=== PATIENT | female | born 1975 | race Caucasian/White ===

== ENCOUNTER 2018-04-20 10:53 | Outpatient (CLI) | payer OTHER ==
[2013-11-24 00:25] VITALS: BP 94/36
[2018-04-20 11:05] LABS: MEAN CORPUSCULAR HEMOGLOBIN 31.1 pg (28.0-34.0); MEAN CORPUSCULAR VOLUME 94.7 fl (80.0-100.0)
== END 2018-04-20 12:17 ==
LOC: LAB 10:53
PROVIDERS: ATTEND Internal Medicine
DX: R53.82 Chronic fatigue, unspecified (principal)
CPT/HCPCS: 36415; 83540; 85027

== ENCOUNTER 2018-07-05 15:55 | Emergency (ER) | payer OTHER ==
--- NOTE | 2018-07-05 16:08 | ED Physician Documentation ---
General Adult - HISTORIAN Historian: patient - HPI Stated Complaint: headache Chief Complaint: General Adult Onset: days ago (7) Timing: still present Severity: moderate Further Comments: yes (Pt is a 42 yo female with c/o migraine headache. Pt has had migraines in the past, but this one has lasted much longer, 7 days, and is only briefly improved with migraine meds, imitrex and fioricet. Also pain has migrated from L side to R side. Pt usually gets L sided migraines. Pt has had pain in her neck, but not neck stiffness. Pt did not get visual changes, although she has had these with migraines in the past. No focal weakness or numbness. Pt has had nausea, but tries to resist vomiting because it makes the headache more intense. PCP is Dr. 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.) - SOCIAL HX Smoking History: less than 1 pack/day - FAMILY HX Family History: No - VITAL SIGNS Vital Signs: Vital Signs Temp Pulse Resp BP Pulse Ox 94/36 11/24/13 00:13 - REVIEWED ASSESSMENTS Nursing Assessment Reviewed: Yes Vitals Reviewed: Yes <Ap Oliveros - Last Filed: 07/05/18 17:00> - HPI Further Comments: yes - VITAL SIGNS Vital Signs: Vital Signs Temp Pulse Resp BP Pulse Ox 96.8 F L 81 18 122/79 97 07/05/18 16:06 07/05/18 16:53 07/05/18 16:53 07/05/18 16:53 07/05/18 16:53 <Alexey Rosas - Last Filed: 07/05/18 18:37> - PAST HX Allergies/Adverse Reactions: Allergies Allergy/AdvReac Type Severity Reaction Status Date / Time Sulfa (Sulfonamide Allergy Intermediate Hives Verified 07/05/18 16:09 Antibiotics) [Sulfa(Sulfonamide Antibiotics)] codeine Allergy Verified 07/05/18 16:17 Home Medications: Ambulatory Orders Medication Instructions Recorded Butalb/Acetaminophen/Caffeine 1 each PRN PRN 07/05/18 [Ydkicy-Yvybavco-Inmb 50-300-40] Estradiol 1 each D 07/05/18 Fluoxetine HCl 20 mg D 07/05/18 Meloxicam [Mobic] 7.5 mg PO BID PRN #30 tablet 07/05/18 Progress - Progress Progress: NS 1 L IVF Zofran 4 mg IV Dilaudid [address] brain w/o contrast: No acute parenchymal process. No hemorrhage. Care transferred to Dr. Rosas at 1700. <Ap Oliveros - Last Filed: 07/05/18 17:00> - Progress Progress: Patient revelauated. States pain has improved to 4/10 but feels that it might come back 1 week history of pain in the neck area, started on the left side has since moved to the right side. Similar to other migranie headaches but not in the some place. No precipitating or modifying factors noted. Pain seems to wax and wain some. Usually takes Fioricet and imetrex, but it has not helped at this time. Describes pain as throbbing in nature, startes at the posterior occiput amd moves down her neck/spin and over the right parietal area at this time. No fever or chills noted. No neurological symptoms present. Exam: Ox3, CN 2-12 intact, neuormuscular and sensory intact. Tender to palpation over right occiput at insertion site of trapizius and stefano pericervical muscles on the right side. No bony abnl noted. FROM of neck. No meningismus neg. Lung clear, CV RRR w/o murmur. <Alexey Rosas - Last Filed: 07/05/18 18:37> ED Results Lab/Radiology - Orders Orders: ED Orders Category Date Time Status Place IV Lock 1T Care 07/05/18 16:[address] BRAIN W/O CONTRAST Stat Exams 07/05/18 Taken 0.9 % Sodium Chloride [Normal Saline] 1,000 ml Med 07/05/18 16:16 Discontinued IV Q1H HYDROmorphone HCL/PF [Dilaudid] Med 07/05/18 16:42 Discontinued 1 mg IVP NOW ONE HYDROmorphone HCL/PF [Dilaudid] Med 07/05/18 16:45 Discontinued 2 mg .ROUTE .STK-MED ONE Ketorolac Tromethamine [Toradol] Med 07/05/18 17:36 Once 30 mg IVP NOW ONE Ondansetron HCl/Pf [Zofran 4 mg/2 ml] Med 07/05/18 16:16 Discontinued 4 mg IVP NOW ONE Orphenadrine Citrate [Norflex] Med 07/05/18 17:36 Once 60 mg IV NOW ONE <Alexey Rosas - Last Filed: 07/05/18 18:37> General Adult Physical Exam - PHYSICAL EXAM GENERAL APPEARANCE: moderate distress EENT: eye inspection normal, pharynx normal NECK: normal inspection, supple RESPIRATORY: no resp distress, chest non-tender, breath sounds normal CVS: reg rate & rhythm, heart sounds normal BACK: normal inspection SKIN: warm/dry, normal color EXTREMITIES: non-tender, normal range of motion, no evidence of injury, no edema NEURO: oriented X3, CN's nml as tested, motor nml, sensation nml <Ap Oliveros - Last Filed: 07/05/18 17:00> Discharge <Ap Oliveros - Last Filed: 07/05/18 17:00> Decision to Admit: NO Date of Decison to Admit: 07/05/18 Decision Time: 18:34 <Alexey Rosas - Last Filed: 07/05/18 18:37> Clincal Impression: Migraine, Muscle tension headache Prescriptions: Meloxicam [Mobic] 7.5 mg PO BID PRN #30 tablet PRN Reason: Pain Referrals: Tj Lakhani MD [Primary Care Provider] - Additional Instructions: Try using a warm compress to the neck area. Take the Mobic twice a day with food. Do exercises as instructed. If symptoms get worse or do not improve to follow-up in ED or with your primary care provider. Take Flexoril as needed for muscle spasms. Condition: Stable Disposition: 01 HOME, SELF-CARE
[2018-07-05] MEDS: 0.9 % SODIUM CHLORIDE 1,000 ML IV ONE (16:36)
[2018-07-05] MEDS: ONDANSETRON HCL/PF 4 MG/ 2ML VIAL IVP ONE (16:36)
[2018-07-05] MEDS: HYDROmorphone HCL/PF 1 MG/ML DISP.SYRIN IVP ONE (16:52)
[2018-07-05] MEDS: HYDROmorphone HCL/PF 2 MG/ML DISP.SYRIN ONE (16:53)
[2018-07-05 16:54] VITALS: BP 122/79
[2018-07-05] MEDS: ORPHENADRINE CITRATE 60 MG/2ML IV ONE (17:50)
[2018-07-05] MEDS: KETOROLAC TROMETHAMINE 30 MG/1ML VIAL IVP ONE (17:50)
--- NOTE | 2018-07-05 18:03 | Diagnostic Imaging Report ---
VANE PALMA [facility] [id number] [facility] [address] [place] [address]. [id number] Report Submission Date: Jul 05, 2018 4:47:58 PM CDT Patient Study Name: JEFFERY RENEE Date: Jul 05, 2018 4:33:08 PM CDT Modality Type: CT Gender: F Description: CT BRAIN W/O CONTRAST : 71 Institution: [facility] Physician: VANE PALMA Examination: CT head without contrast History: CT HEAD, ATYPICAL MIGRAINE, PT STATES SHE HAS BEEN HAVING MIGRAINES FOR 1 WEEK, WORSENING (Hx) Comparison exam: None available Technique: Noncontrast head CT protocol. Findings: Ventricles and sulci are appropriate for patient age. Cerebrocerebellar parenchyma demonstrates normal attenuation. No evidence for parenchymal hemorrhage. No evidence for mass or mass effect. No midline shift. No extra axial fluid collections. Partial visualization of the paranasal sinuses, mastoid air cells, orbits, skull and scalp without gross irregularity. Impression: No acute parenchymal process. No hemorrhage. Electronically signed on Jul 05, 2018 4:47:58 PM CDT by: Zach PEREZ
[2018-07-05 18:11] LABS: BASOPHILS % 0.3 (0.0-1.5); EOSINOPHILS % 1.5 % (0.0-6.8); MEAN CORPUSCULAR HEMOGLOBIN 30.9 pg (28.0-34.0); MEAN CORPUSCULAR VOLUME 94.7 fl (80.0-100.0); MONOCYTES % 3.6 % (0.0-11.0); NEUTROPHILS # 6.7 # k/uL (1.4-7.7)
[2018-07-05 18:18] LABS: eGFR (Non-African) > 60
== END 2018-07-05 18:48 | disposition home or self-care (01) ==
LOC: ED 15:55
DX: G43.909 Migraine, unspecified, not intractable, without status migrainosus (principal); G44.209 Tension-type headache, unspecified, not intractable
CPT/HCPCS: 70450; 80053; 85025; J1170; J1885; J2360; J2405; J7030; 96365; 96375; S1016